=== PATIENT | female | born 1985 | race Caucasian/White ===

== ENCOUNTER 2017-08-06 21:26 | Emergency (ER) | payer OTHER ==
[2017-08-06 22:43] VITALS: BP 119/86
== END 2017-08-06 23:30 | disposition home or self-care (01) ==
LOC: ED 21:26
DX: J01.90 Acute sinusitis, unspecified (principal); R51 Headache
CPT/HCPCS: J3010; Q0162

== ENCOUNTER 2018-01-21 22:45 | Emergency (ER) | payer OTHER ==
[~2018-01-21] VITALS: Ht 172.7 cm; Wt 75.7 kg
[2018-01-21 22:54] VITALS: Ht 172.7 cm; Wt 75.7 kg
[2018-01-22 03:30] VITALS: BP 115/68
== END 2018-01-22 03:30 | disposition home or self-care (01) ==
LOC: ED 22:45
DX: J32.9 Chronic sinusitis, unspecified (principal); R51 Headache
CPT/HCPCS: J0780; J1100; J1885